=== PATIENT | female | born 1975 | race Caucasian/White ===

== ENCOUNTER → 2018-04-18 | Outpatient (CLI) | payer MEDICAID ==
[~2018-04-18] MED LIST: ACHD5005 PO; BPR100T; CATHETER FLUSH 10 ML SYR IV PRN; DULO60CA6 PO
[2018-04-18 14:00] VITALS: BP 157/89
--- NOTE | 2018-04-19 07:44 | STRESS TEST ---
DATE OF SERVICE: 04/18/2018 EXERCISE MYOVIEW STRESS TEST REPORT REFERRING PHYSICIAN: Kenia Denney MD. Baseline heart rate 77, baseline blood pressure 156/72. Baseline EKG is sinus rhythm with frequent premature ventricular contractions and ventricular bigeminy. In summary, the patient was injected with 9.4 mCi of technetium-99 Myoview and the resting images were obtained. Then, the patient started exercising with a baseline heart rate, blood pressure and EKG mentioned above. She was able to exercise for a total of 8 minutes on standard Ricardo protocol. During exercise, there were no premature ventricular contractions were noted. At peak exercise level, there were minimal nondiagnostic EKG changes with [address] depression in II, III, aVF, V4 and V5. Blood pressure was 157/87. During recovery, heart rate and blood pressure returned to baseline. EKG returned to baseline. The resting and stress images were reviewed and compared in the short axis, horizontal long axis, and vertical long axis views. Review of the images showed no significant ischemia or infarction on SPECT images. SSS is 3, SDS 1, TID value 1.08. On the gated images, the left ventricle appeared to be in normal size with normal contractility. Calculated ejection fraction 68%. CONCLUSION: 1. Good exercise tolerance, a total of 8 minutes on standard Ricardo protocol, total of 9.7 METS achieving 86% of maximum expected heart rate. 2. Frequent premature ventricular contractions noted before test that improved with exercise and no further PVCs noted during test. 3. Minimal nondiagnostic EKG changes with exercise returned to baseline during recovery. 4. No ischemia or infarction on SPECT images. 5. Normal left ventricular size with normal contractility. Calculated ejection fraction 68%. Job ID: [id number] DocumentID: [id number] Dictated Date: 04/19/2018 06:56:50 [facility] Professional Date: 04/19/2018 07:43:23 Dictated By: OMAR SY MD
== END ==
LOC: CARD 12:23
PROVIDERS: ATTEND Internal Medicine Cardiovascular Disease
DX: I10 Essential (primary) hypertension (principal); I49.3 Ventricular premature depolarization; R00.2 Palpitations; F32.9 Major depressive disorder, single episode, unspecified
CPT/HCPCS: 78452; 93017

== ENCOUNTER → 2018-04-19 | Outpatient (CLI) | payer MEDICAID ==
[~2018-04-19] MED LIST changes: -CATHETER FLUSH 10 ML SYR IV PRN
== END ==
LOC: CARD 07:57
PROVIDERS: ATTEND Internal Medicine Cardiovascular Disease
DX: I10 Essential (primary) hypertension (principal); I49.3 Ventricular premature depolarization; R00.2 Palpitations; F32.9 Major depressive disorder, single episode, unspecified
CPT/HCPCS: 93225; 93226

== ENCOUNTER → 2018-05-08 | Outpatient (CLI) | payer MEDICAID | LOC: CARD 11:33 | PROVIDERS: ATTEND Internal Medicine Cardiovascular Disease | DX: I10 Essential (primary) hypertension (principal); I49.3 Ventricular premature depolarization; R00.2 Palpitations; F32.9 Major depressive disorder, single episode, unspecified; I34.0 Nonrheumatic mitral (valve) insufficiency | CPT/HCPCS: 93306 ==

== ENCOUNTER → 2018-06-04 | Outpatient (CLI) | payer MEDICAID | LOC: CARD 08:23 | PROVIDERS: ATTEND Internal Medicine Interventional Cardiology | DX: I49.3 Ventricular premature depolarization (principal); R00.2 Palpitations | CPT/HCPCS: 93225; 93226 ==